=== PATIENT | male | born 1955 | race Caucasian/White ===

== ENCOUNTER 2021-04-30 11:54 | Day surgery (SDC) | payer MEDICARE, BC ==
[~2021-04-30] VITALS: Ht 190.5 cm; Wt 129.1 kg
[2021-04-30] VITALS (14 sets, daily range): BP systolic 135–162; BP diastolic 90–132
[2021-04-30] MEDS ORDERED: normal saline 1000ml 1,000 ML IV SCH (12:40)
[2021-04-30] MEDS ORDERED: fentaNYL/PF 50MCG/1 ML 2ML syringe IV ONE (12:40)
[2021-04-30] MEDS ORDERED: MIDAZolam 1mg/ml 10ml vial IV ONE (12:40)
[2021-04-30] MEDS ORDERED: FLEC100T35 PO (12:50)
[2021-04-30] MEDS ORDERED: CHOL20002 PO (12:50)
[2021-04-30] MEDS ORDERED: CARV3.1246 PO (12:50)
[2021-04-30] MEDS ORDERED: CARV6.2555 PO (12:50)
[2021-04-30] MEDS ORDERED: APIX5TAB3 PO (12:50)
[2021-04-30] MEDS ORDERED: OMEP40CA21 PO (12:50)
== END 2021-04-30 16:30 | disposition home or self-care (01) ==
LOC: SSTAY O 11:54
PROVIDERS: ATTEND Internal Medicine Interventional Cardiology
DX: I48.91 Unspecified atrial fibrillation (principal); D64.9 Anemia, unspecified; G47.10 Hypersomnia, unspecified; I10 Essential (primary) hypertension; Z86.718 Personal history of other venous thrombosis and embolism; Z87.01 Personal history of pneumonia (recurrent); Z79.01 Long term (current) use of anticoagulants; Z79.899 Other long term (current) drug therapy
CPT/HCPCS: 92960; 94760; J2250; J3010; J7030

== ENCOUNTER 2024-12-20 09:58 | Day surgery (SDC) | payer MEDICARE, BC ==
[2024-12-16 10:20] LABS: BASOPHILS % (AUTO) 0.7 % (0-1); EOSINOPHILS % (AUTO) 1.3 % (0-6); HEMATOCRIT 48.2 % (42.0-52.0); LYMPHOCYTES # (AUTO) 1.2 X10'3 (1.1-4.8); MEAN CORPUSCULAR HGB CONC 33.1 g/dL (33.0-36.5); MEAN CORPUSCULAR VOLUME 81.6 FL (78-98); MEAN PLATELET VOLUME 8.6 FL (7.4-10.4); MONOCYTES # (AUTO) 0.3 X10'3 (0-0.9); MONOCYTES % (AUTO) 9.1 % (2-12); NEUTROPHILS % (AUTO) 54.9 % (42-75); PLATELET COUNT 148 X10'3 (140-440); RED BLOOD COUNT 5.91 X10'6 (4.70-6.10); RED CELL DISTRIBUTION WIDTH 19.5 % (11.5-14.5); WHITE BLOOD COUNT 3.7 X10'3 (4.5-11.0)
[2024-12-16 10:36] LABS: APTT 29 SECONDS (22-32); INR 1.1 INR; PROTHROMBIN TIME 11.9 SECONDS (9.0-12.0)
[2024-12-16 10:37] LABS: ANION GAP 4 (8-16); BLOOD UREA NITROGEN 20 MG/DL (7-18); BUN/CREATININE RATIO 17.1 (10.0-20.0); CALCIUM 8.9 MG/DL (8.5-10.1); CHLORIDE 106 MMOL/L (99-107); CHOL/HDL RATIO 2.9 (0.00-4.99); CHOLESTEROL 192 MG/DL (0-200); CREATININE 1.17 MG/DL (0.60-1.10); GLUCOSE 142 MG/DL (70-104); HDL CHOLESTEROL 66 MG/DL (35-60); LDL CHOLESTEROL 111 MG/DL (50-100); POTASSIUM 4.4 MMOL/L (3.5-5.1); SODIUM 141 MMOL/L (135-145); TOTAL CARBON DIOXIDE 30.7 MMOL/L (24-32); TRIGLYCERIDES 118 MG/DL (20-135); eGFR 61 ML/MIN
[2024-12-16 10:52] LABS: ANISOCYTOSIS 2+; ELLIPTOCYTES FEW; PLATELET ESTIMATE NORMAL; STOMATOCYTES FEW
[2024-12-20] VITALS (13 sets, daily range): BP systolic 120–164; BP diastolic 71–107; PULSE 67–97; RESP 11–22; TEMP 97.6; O2SAT 95–98
[~2024-12-20] VITALS: Ht 190.5 cm; Wt 109.7 kg
[~2024-12-20 09:58] MED LIST: APIX5TAB3 PO; CARV3.1246 PO; CARV6.2555 PO; CHOL20002 PO; FLEC100T35 PO; OMEP40CA21 PO
[2024-12-20] MEDS ORDERED: FERR-39 PO (10:50)
[2024-12-20] MEDS ORDERED: DILT30TA5 PO (10:50)
[2024-12-20] MEDS ORDERED: FLEC50TA3 PO (10:50)
[2024-12-20] MEDS: normal saline 1000ml 1,000 ML IV SCH (13:18)
[2024-12-20] MEDS: MIDAZolam 1mg/ml 10ml vial IV ONE (13:18)
[2024-12-20] MEDS: fentaNYL/PF 50MCG/1 ML 2ML syringe IV ONE (13:18)
== END 2024-12-20 14:25 | disposition home or self-care (01) ==
LOC: SSTAY O 09:58
PROVIDERS: ATTEND Student in an Organized Health Care Education/Training Program
DX: I48.91 Unspecified atrial fibrillation (principal); I10 Essential (primary) hypertension; Z86.711 Personal history of pulmonary embolism; K21.9 Gastro-esophageal reflux disease without esophagitis; Z86.718 Personal history of other venous thrombosis and embolism
CPT/HCPCS: 36415; 80048; 80061; 85025; 85610; 85730; 92960; J2250; J3010; J7030; 85008